=== PATIENT | male | born 1935 | race Caucasian/White ===

== ENCOUNTER → 2017-07-27 | Day surgery (SDC) | payer MEDICARE ==
[~2017-07-27] VITALS: Ht 165.1 cm; Wt 68.5 kg
[~2017-07-27] MED LIST: ASPI81TA23 PO; BIOTCAP PO; CALC500T21 OR; CHLORHEXIDINE GLUCONATE 2 % 1 PACK (2 CLOTHS) TOPICAL PRN; CINN500C14 PO; COQ150CA PO; CRANCAP2 PO; FISH1000 PO; GLUC500T4 PO; HYALURONIDASE/LIDOCAINE/BUPIVACAINE 5 ML SYR RIGHT EYE ONE; LACTATED RINGER'S 1000 ML IV PRN; LIDOCAINE HCL 1% PF 30 ML VIAL ONE; LOVA20TA PO; LUTE20CA PO; METOPROLOL TARTRATE 25 MG TAB PO PRN; POVIDONE IODINE 5% (ANTISEPSIS KIT) 4 APPLICATIONS EACH NARE PRN; PRAV80TA PO; PROPARACAINE HCL 0.5% OPHT SOLN 15 ML BTL RIGHT EYE ONE; PROPOFOL 200 MG/20 ML AMP ONE; SACC1CAP3 PO; SAW450CA2 PO; SODIUM CHLORID 0.9% 500 ML IV PRN; TAB-TAB PO; TOBRAMYCIN/DEXAMETHASONE OPTH OINT 3.5 GM TUBE ONE; VITA1000 PO; VITA250T3 PO; VITATAB11 PO
[2017-07-27] MEDS: TROPICAMIDE 1% OPHT SOLN 15 ML BTL RIGHT EYE SCH ×4 (07:00→07:15)
[2017-07-27] MEDS: FLURBIPROFEN 0.03% OPHT SOLN 2.5 ML BTL RIGHT EYE SCH ×4 (07:00→07:15)
[2017-07-27] MEDS: CYCLOPENTOLATE HCL 1% OPHT SOLN 2 ML BTL RIGHT EYE SCH ×4 (07:00→07:15)
[2017-07-27] MEDS: PHENYLEPHRINE HCL 10% OPTH SOLN 5 ML BTL RIGHT EYE SCH ×4 (07:00→07:15)
[2017-07-27 07:01] VITALS: PULSE 64
[2017-07-27 07:43] VITALS: PULSE 66
[2017-07-27 09:05] VITALS: BP 105/49; PULSE 52; RESP 16; TEMP 97.3; O2SAT 98
--- NOTE | 2017-07-29 06:02 | MP ---
cc: ZAY MYERS M.D. [facility] NUMBER: [id number] DATE OF PROCEDURE: 07/27/2017 PREOPERATIVE DIAGNOSIS: Visually significant cataract right POSTOPERATIVE DIAGNOSIS: Visually significant cataract right eye. OPERATION: Phacoemulsification with posterior chamber lens implantation, right eye. SURGEON: Zay Myers MD ANESTHESIA: Retrobulbar with MAC. COMPLICATIONS: None. PROCEDURE: After informed consent was obtained, the patient was brought into the operative suite and placed on appropriate monitors by the Anesthesia Service. The patient had received a prior retrobulbar injection of local anesthetic by the Anesthesia Service in the holding area. The patient's operative eye was then prepped and draped in the usual sterile fashion. A wire lid speculum was placed. A paracentesis incision was made in the peripheral cornea with a 1 mm payton keratome. The anterior chamber was filled with viscoelastic. The anterior chamber was then entered through a stepped, clear corneal incision using a sharp 3 mm payton keratome. A circular tear capsulorrhexis was then made with a bent needle cystitome. Following hydrodissection of the lens nucleus with balanced saline, phaco-emulsification of the nucleus was performed using a modified chopping technique. The remaining cortex was removed with irrigation/aspiration. The prior two procedures were both performed using the handpieces of the [employer] phaco unit. The capsular bag was then filled with viscoelastic. The intraocular lens was then injected into the capsular bag and positioned. The type of intraocular lens and its power can be found elsewhere in this chart. The remaining viscoelastic was then removed from the anterior chamber with the IA handpiece. The anterior chamber was reformed with balanced saline. The wound was then closed securely with stromal hydration. It was found to be watertight to an intraocular pressure of at least 30 mmHg by palpation. A small amount of balanced salt solution was then removed through the paracentesis site and the intraocular pressure at the end of the case was approximately 20 by palpation. All drapes were then removed. TobraDex ointment was then placed in the eye, which was closed beneath a semi-pressure patch dressing. The patient tolerated this procedure well and left the operating room awake and alert. The patient is to follow-up in my office in the morning. ADDENDUM: After the clear corneal incisions were sealed water tight, a 6 mm limbal relaxing incision was made with a 600 micron payton blade, centered around the 180 degree [place] nasally. MD ROSIBEL Anguiano/rebecca /9:34 AM /5:44 AM
== END | disposition home or self-care (01) ==
LOC: PHSDC 06:16
PROVIDERS: ATTEND Optometrist Occupational Vision
DX: H26.9 Unspecified cataract (principal)
CPT/HCPCS: 00142; 66984; J7040; V2632

== ENCOUNTER → 2017-08-31 | Day surgery (SDC) | payer MEDICARE ==
[~2017-08-31] VITALS: Ht 162.6 cm; Wt 71.0 kg
[~2017-08-31] MED LIST changes: -CALC500T21 OR; -CHLORHEXIDINE GLUCONATE 2 % 1 PACK (2 CLOTHS) TOPICAL PRN; +CRAN250C3 PO; -CRANCAP2 PO; +CYCLOPENTOLATE HCL 1% OPHT SOLN 2 ML BTL ONE; -FISH1000 PO; +FLURBIPROFEN 0.03% OPHT SOLN 2.5 ML BTL ONE; +GINK60TA10 PO; +HYALURONIDASE/LIDOCAINE/BUPIVACAINE 5 ML SYR ONE; -HYALURONIDASE/LIDOCAINE/BUPIVACAINE 5 ML SYR RIGHT EYE ONE; +KRIL300C3 PO; +LACT1CAP19 PO; -LACTATED RINGER'S 1000 ML IV PRN; +MAGN400T2 PO; -METOPROLOL TARTRATE 25 MG TAB PO PRN; +MULTTAB67 PO; +OMEG100046 PO; +PHENYLEPHRINE HCL 10% OPTH SOLN 5 ML BTL ONE; -POVIDONE IODINE 5% (ANTISEPSIS KIT) 4 APPLICATIONS EACH NARE PRN; -PRAV80TA PO; +PROPARACAINE HCL 0.5% OPHT SOLN 15 ML BTL ONE; -PROPARACAINE HCL 0.5% OPHT SOLN 15 ML BTL RIGHT EYE ONE; +RESV50CA PO; +SODIUM CHLORID 0.9% 500 ML INJ 500 ML ONE; -SODIUM CHLORID 0.9% 500 ML IV PRN; -TAB-TAB PO; +TROPICAMIDE 1% OPHT SOLN 15 ML BTL ONE; -VITA1000 PO; -VITA250T3 PO; +VITA500T83 PO; +[UNRECOGNIZED DRUG - OTHER] PO
[2017-08-31 07:17] VITALS: PULSE 58
[2017-08-31 07:37] VITALS: PULSE 56
[2017-08-31 09:10] VITALS: BP 112/67; PULSE 62; RESP 16; TEMP 98.2; O2SAT 99
--- NOTE | 2017-08-31 10:11 | MP ---
cc: ZAY MYERS M.D. [facility] #[id number] DATE OF SURGERY 08/31/2017 PREOPERATIVE DIAGNOSIS Visually significant cataract left eye. POSTOPERATIVE DIAGNOSIS Visually significant cataract left eye. OPERATION Phacoemulsification with posterior chamber lens implantation, left eye. SURGEON Zay Myers MD ANESTHESIA Retrobulbar with MAC. COMPLICATIONS None PROCEDURE After informed consent was obtained, the patient was brought into the operative suite and placed on appropriate monitors by the Anesthesia Service. The patient had received a prior retrobulbar injection of local anesthetic by the Anesthesia Service in the holding area. The patient's operative eye was then prepped and draped in the usual sterile fashion. A wire lid speculum was placed. A paracentesis incision was made in the peripheral cornea with a 1 mm payton keratome. The anterior chamber was filled with viscoelastic. The anterior chamber was then entered through a stepped, clear corneal incision using a sharp 3 mm payton keratome. A circular tear capsulorrhexis was then made with a bent needle cystitome. Following hydrodissection of the lens nucleus with balanced saline, phacoemulsification of the nucleus was performed using a modified chopping technique. The remaining cortex was removed with irrigation/aspiration. The prior two procedures were both performed using the handpieces of the [employer] phaco unit. The capsular bag was then filled with viscoelastic. The intraocular lens was then injected into the capsular bag and positioned. The type of intraocular lens and its power can be found elsewhere in this chart. The remaining viscoelastic was then removed from the anterior chamber with the IA handpiece. The anterior chamber was reformed with balanced saline. The wound was then closed securely with stromal hydration. It was found to be watertight to an intraocular pressure of at least 30 mmHg by palpation. A small amount of balanced salt solution was then removed through the paracentesis site and the intraocular pressure at the end of the case was approximately 20 by palpation. All drapes were then removed. TobraDex ointment was then placed in the eye, which was closed beneath a semi-pressure patch dressing. The patient tolerated this procedure well and left the operating room awake and alert. The patient is to follow-up in my office in the morning. ADDENDUM After the clear corneal incisions were sealed water-tight, a 6-mm limbal relaxing incision was made with a 600 micron payton blade, centered around the nasal 180 degree meridian. MD ROSIBEL Anguiano/LORAINE /9:57 AM /10:06 AM
== END | disposition home or self-care (01) ==
LOC: PHSDC 06:31
PROVIDERS: ATTEND Optometrist Occupational Vision
DX: H25.12 Age-related nuclear cataract, left eye (principal)
CPT/HCPCS: 00142; 66984; J7040; V2632